=== PATIENT | female | born 1935 | race Caucasian/White ===

== ENCOUNTER 2023-12-03 16:20 | Emergency (ER) | payer OTHER ==
[2023-12-03 16:34] VITALS: BP 137/62; PULSE 89; RESP 18; TEMP 98; BMI 37.3
== END 2023-12-03 18:00 | disposition home or self-care (01) ==
LOC: JER 16:20
DX: R21 Rash and other nonspecific skin eruption (principal); B35.4 Tinea corporis; B35.6 Tinea cruris
CPT/HCPCS: 99283-25